=== PATIENT | female | born 1950 | race Two or more races ===

== ENCOUNTER 2022-05-22 01:05 | Emergency (ER) | payer OTHER ==
[~2022-05-22] VITALS: Ht 160 cm; Wt 61.2 kg
[2022-05-22] MEDS ORDERED: ALDACTONE25 MG PO (01:15)
[2022-05-22] MEDS ORDERED: FUROSEMIDE20 MG PO (01:15)
== END 2022-05-22 03:44 | disposition home or self-care (01) ==
LOC: ER 01:05 → EDBD 01:49 → ER 01:49
DX: R10.84 Generalized abdominal pain (principal); D09.9 Carcinoma in situ, unspecified; R18.0 Malignant ascites